=== PATIENT | female | born 1960 | race Caucasian/White ===

== ENCOUNTER 2020-04-12 10:58 | Emergency (ER) | payer OTHER ==
[~2020-04-12] VITALS: Ht 165.1 cm; Wt 51.9 kg
--- OUTSIDE RECORDS SUMMARY | 2020-04-12 11:04 | XMS REPORT | Continuity of Care Document ---
Author Author [facility] Organization [employer] Address Unknown Phone Unavailable Allergies There is no data. Medications There is no data. Problems There is no data. Procedures There is no data. Results Test Result Range CULTURE, URINE - 12/20/18 16:31 CULTURE, URINE, ROUTINE SEE NOTE NRG CULTURE, URINE - 07/18/19 14:42 CULTURE, URINE, ROUTINE SEE NOTE NRG Encounters ACCT No. Visit Date/Time Discharge Status Pt. Type Provider Facility Loc./Unit Complaint [id number] 07/18/2019 14:40:00 07/18/2019 23:59: 59 CLS Outpatient SELF, ANNE Roche [facility] [id number] 07/18/2019 14:40:00 Document Registration [id number] 12/20/2018 13:45:00 Document Registration [id number] 04/12/2020 11:00:[address] Emergency MOLLY IVY, ROXY Babb [facility] ER FS FALL - LT WRIST PAIN
--- NOTE | 2020-04-12 11:17 | ED Upper Extremity ---
General Chief Complaint: Upper Extremity Stated Complaint: FALL - LT WRIST PAIN Source: patient History of Present Illness Date Seen by Provider: Apr 12, 2020 Time Seen by Provider: 11:14 Initial Comments Pt presents with left wrist pain. She fell this morning outside and landed on outstretched hand. Complains of pain in her wrist. No elbow pain. Moves fingers without difficulty. Onset: just prior to arrival Allergies and Home Medications Allergies Coded Allergies: Sulfa (Sulfonamide Antibiotics) (Verified Allergy, Unknown, 04/12/20) Patient Home Medication List Home Medication List Reviewed: Yes Review of Systems Constitutional: no symptoms reported Respiratory: no symptoms reported Cardiovascular: no symptoms reported Gastrointestinal: no symptoms reported Musculoskeletal: other (Wrist pain) Psychiatric/Neurological: Denies Numbness, Denies Paresthesia, Denies Weakness Physical Exam Vital Signs Vital Signs - First Documented 04/12/20 11:00 Temp 35.7 Pulse 69 Resp 14 B/P (MAP) 100/53 (69) Pulse Ox 95 O2 Delivery Room Air Capillary Refill : Height, Weight, BMI Height: '" Weight: lbs. oz. kg; BMI Method: General Appearance: WD/WN, no apparent distress Neck: supple Cardiovascular: normal peripheral pulses Respiratory: no respiratory distress Elbow/Forearm: normal inspection, non-tender Wrist: Yes bone tenderness Hand: normal inspection Neurologic/Tendon: normal sensation Neurologic/Psychiatric: no motor/sensory deficits Skin: normal color Progress/Results/Core Measures Results/Orders My Orders Orders - ROXY BARNES MD Wrist 3 View Left (04/12/20 11:13) Nursing Communication (Order) (04/12/20 11:35) Vital Signs/I&O 04/12/20 11:00 Temp 35.7 Pulse 69 Resp 14 B/P (MAP) 100/53 (69) Pulse Ox 95 O2 Delivery Room Air Progress Progress Note : Time: 11:39 Progress Note Distal radius fracture seen on XR. Will place in splint and refer to Ortho for follow up. Departure Impression Primary Impression: Fracture of left distal radius Disposition: 01 HOME, SELF-CARE Condition: Stable Departure-Patient Inst. Decision time for Depature: 11:45 Referrals: CAROLINE PETERSON MD Patient Instructions: Wrist Fracture (DC) Scripts Hydrocodone/Acetaminophen (Hydrocodone-Acetamin 5-325 mg) 1 Each Tablet 1 EACH PO Q6H PRN for PAIN-MODERATE (5-7), #20 TAB 0 Refills Prov: ROXY BARNES MD 04/12/20 ROXY BARNES MD Apr 12, 2020 11:17
[2020-04-12] MEDS ORDERED: HYDR-3812 PO (11:49)
--- NOTE | 2020-04-12 11:51 | Diagnostic Imaging Report ---
INDICATION: Status post fall in yard, injury, pain. TECHNIQUE: 3 views of the left wrist 11:24 AM CORRELATION STUDY: None FINDINGS: Comminuted, predominantly transversely oriented fracture through the distal metaphysis of the radius. There does appear to be a single fracture line going through the articular surface. There is slight dorsal displacement and angulation of the main distal fracture fragment. Impaction is noted. Minimally displaced ulnar styloid process fracture. Associated soft tissue swelling. IMPRESSION: 1. Impacted comminuted angulated distal radius fracture. Nondisplaced ulnar styloid process fracture. Associated soft tissue swelling. Dictated by: Dictated on workstation # [id number]
[2020-04-12 12:16] VITALS: BP 100/53
== END 2020-04-12 12:15 | disposition home or self-care (01) ==
LOC: ER FS 11:00
DX: S52.502A Unspecified fracture of the lower end of left radius, initial encounter for closed fracture (principal); Z88.2 Allergy status to sulfonamides; W19.XXXA Unspecified fall, initial encounter
CPT/HCPCS: 29105; 73110

== ENCOUNTER → 2020-04-15 | Outpatient (CLI) | payer OTHER ==
[~2020-04-15] MED LIST: HYDR-3812 PO
--- NOTE | 2020-04-17 08:12 | Diagnostic Imaging Report ---
EXAMINATION: Left wrist, 2 views, on 04/15/2020 at 10:31 AM. INDICATION: Followup left wrist fracture. COMPARISON: 04/12/2020. FINDINGS: There has been placement of a fiberglass cast obscuring bone detail. The fracture of the distal radius demonstrates anatomic alignment. There is normal alignment of the ulnar styloid fracture. The carpus and metacarpals are unremarkable. IMPRESSION: Cast placement. There appears to be anatomic alignment of the distal radial and ulnar fractures. Dictated by: Dictated on workstation # [id number]
== END ==
LOC: RAD FS 04-14 15:33
PROVIDERS: ATTEND Nurse Practitioner
DX: Z46.89 Encounter for fitting and adjustment of other specified devices (principal); S52.532D Colles' fracture of left radius, subsequent encounter for closed fracture with routine healing; X58.XXXD Exposure to other specified factors, subsequent encounter
CPT/HCPCS: 73100

== ENCOUNTER → 2020-04-28 | Outpatient (CLI) | payer OTHER ==
--- NOTE | 2020-04-28 12:23 | Diagnostic Imaging Report ---
INDICATION: Left wrist fracture follow-up. AP, oblique, and lateral views of left wrist are obtained. COMPARISON: 04/15/2020 FINDINGS: Distal radial fracture is again noted with mild dorsal angulation of distal fragment. Ulnar styloid avulsion again noted. IMPRESSION: No change in alignment of distal radial fracture with mild dorsal angulation of the distal fragment. Ulnar styloid avulsion is noted. Dictated by: Dictated on workstation # [id number]
== END ==
LOC: RAD FS 11:01
PROVIDERS: ATTEND Nurse Practitioner
DX: S52.532D Colles' fracture of left radius, subsequent encounter for closed fracture with routine healing (principal)
CPT/HCPCS: 73100

== ENCOUNTER → 2020-05-05 | Outpatient (CLI) | payer OTHER ==
[~2020-05-05] MED LIST changes: +ACHD5005 PO; -HYDR-3812 PO
--- NOTE | 2020-05-05 11:36 | Diagnostic Imaging Report ---
INDICATION: Follow-up left wrist fracture. TIME OF EXAM: 11:18 AM Correlation is made with prior radiograph from 04/28/2020. FINDINGS: Wrist is encased in a fiberglass cast, obscuring bony detail. The impacted distal radius fracture is again noted. Overall alignment remains anatomic. Carpus and metacarpals are unremarkable. IMPRESSION: Impacted distal radius fracture demonstrating near-anatomic alignment. Dictated by: Dictated on workstation # [id number]
== END ==
LOC: RAD FS 10:53
PROVIDERS: ATTEND Nurse Practitioner
DX: S52.532D Colles' fracture of left radius, subsequent encounter for closed fracture with routine healing (principal)
CPT/HCPCS: 73100

== ENCOUNTER → 2020-05-12 | Outpatient (CLI) | payer OTHER ==
--- NOTE | 2020-05-12 12:28 | Diagnostic Imaging Report ---
EXAMINATION: Left wrist at 10:58 AM. INDICATION: Followup fracture. TECHNIQUE: AP and lateral views of the left wrist were obtained. FINDINGS: The impacted healing fracture of the distal radius seen on the prior exam of 05/05/2020 is again evident. The fracture fragments are unchanged in alignment. There may be minimally greater callus formation than on the prior exam. The overall appearance of the wrist is otherwise stable. No new abnormality has developed. There is still a fiberglass cast in place. IMPRESSION: There is a healing impacted nondisplaced fracture of the distal radial metaphysis. Overall, there has been no significant change since the prior exam. Dictated by: Dictated on workstation # [id number]
== END ==
LOC: RAD FS 10:24
PROVIDERS: ATTEND Nurse Practitioner
DX: S52.532D Colles' fracture of left radius, subsequent encounter for closed fracture with routine healing (principal)
CPT/HCPCS: 73100

== ENCOUNTER → 2020-05-26 | Outpatient (CLI) | payer OTHER ==
--- NOTE | 2020-05-26 10:59 | Diagnostic Imaging Report ---
EXAMINATION: Left wrist at 10:35 AM. INDICATION: Followup fracture. TECHNIQUE: AP and lateral views were obtained. FINDINGS: In the interval since the prior exam of 05/12/2020, the fiberglass cast has been removed. The impacted healing fracture of the distal radius seen on the prior study is again evident. The main fracture fragments are unchanged in alignment. There does not appear to have been any significant increased amount of healing callus formation since the prior exam and the fracture line is still partially visualized. No other fracture or acute bony abnormality is noted. IMPRESSION: 1. There is a healing impacted fracture of the distal radial metaphysis. The main fracture fragments appear stable but the fracture has not healed completely. 2. There is no acute bony abnormality noted. 3. The fiberglass cast seen previously has been removed. Dictated by: Dictated on workstation # [id number]
== END ==
LOC: RAD FS 10:28
PROVIDERS: ATTEND Nurse Practitioner
DX: S52.532D Colles' fracture of left radius, subsequent encounter for closed fracture with routine healing (principal)
CPT/HCPCS: 73100

== ENCOUNTER → 2020-06-15 | Outpatient (CLI) | payer OTHER ==
--- NOTE | 2020-06-15 10:17 | Diagnostic Imaging Report ---
EXAMINATION: Left wrist at 9:33 AM. INDICATION: Injury, wrist pain. TECHNIQUE: AP and lateral views were obtained. FINDINGS: As noted on the prior exam of 05/26/2020, there is an impacted healing fracture of the distal radial metaphysis. There does seem to be somewhat greater callus formation about the fracture site but the fracture line is still visualized. No other fracture or acute bony abnormality is appreciated. The soft tissues are unremarkable. IMPRESSION: 1. There has been further healing of the fracture of the distal radial metaphysis but the fracture line is still partially visualized. 2. There is no acute bony abnormality noted. Dictated by: Dictated on workstation # [id number]
== END ==
LOC: RAD FS 09:21
PROVIDERS: ATTEND Nurse Practitioner
DX: S52.532D Colles' fracture of left radius, subsequent encounter for closed fracture with routine healing (principal); X58.XXXD Exposure to other specified factors, subsequent encounter
CPT/HCPCS: 73100

== ENCOUNTER 2022-12-02 17:22 | Observation (INO) | payer OTHER ==
[~2022-12-02] VITALS: Ht 165.1 cm; Wt 56.5 kg
--- NOTE | 2022-12-02 17:48 | ED Neurological Problem ---
General Chief Complaint: Neuro-Stroke Like Symptoms Stated Complaint: NUMBNESS ON RIGHT SIDE Source: patient History of Present Illness Date Seen by Provider: Dec 02, 2022 Time Seen by Provider: 17:44 Initial Comments 62-year-old female presenting with complaints of numbness and weakness on her right side that started at 6 AM. She states that she got up at 5 AM and was feeling fine but at 6 AM she started feeling decreased sensation and felt like her leg and arm were going heavy. She felt like it started in her leg and then moved up. She denies any changes in sensation or weakness of her face. She is not having any difficulty with her words or swallowing and speaking. She felt like the symptoms were waxing and waning in intensity. At times it felt like it would almost go away but then got worse again. She denies any recent fall, injury, surgery, new medications. She does smoke cigarettes on a daily basis. She denies any prescription medicines but takes biotin, vitamin D, vitamin E, zinc. She did feel like she had some similar symptoms a few months ago but it only lasted a few minutes and then resolved. Her has been trying to convince her to come to the ER most of the day and she was refusing. He finally got her to come this evening but she was not happy about being here and she feels that if she gave it more time the symptoms would go away. Timing/Duration: waxing and waning (since 6 am.) Severity: mild Associated Symptoms: No confusion, No fatigue, No fever/chills, No insomnia, No loss of consciousness, No muscle spasms, No nausea/vomiting; numbness in legs/feet, paresthesia (right arm and leg); No ringing in ears, No seizures, No sleepy, No slurred speech; tingling in legs/feet; No trouble walking, No vision changes; weakness (heaviness in right arm and right leg) Allergies and Home Medications Allergies Coded Allergies: Sulfa (Sulfonamide Antibiotics) (Verified Allergy, Unknown, 04/12/20) Patient Home Medication List Home Medication List Reviewed: Yes Hydrocodone/Acetaminophen (Hydrocodone-Acetamin 5-325 mg) 1 Each Tablet, 1 EACH PO Q6H PRN for PAIN-MODERATE (5-7) Prescribed by: ROXY BARNES on 04/12/20 [id number] Review of Systems Review of Systems Constitutional: No chills, No fever Eyes: Denies Blurred Vision, Denies Photophobia, Denies Vision Changes Ears, Nose, Mouth, Throat: denies ear pain, denies ear discharge, denies nose pain, denies nose discharge, denies epistaxis Respiratory: No cough, No short of breath Cardiovascular: No chest pain Gastrointestinal: No nausea, No vomiting Genitourinary: No dysuria Musculoskeletal: see HPI; No back pain, No neck pain Skin: No change in color, No rash Psychiatric/Neurological: See HPI Endocrine: No Symptoms Reported Hematologic/Lymphatic: Denies Blood Clots Past Xxcegsl-Orimwf-Idzrmm Hx Patient Social History Tobacco Use?: Yes Tobacco type used: Cigarettes Smoking Status: Current Everyday Smoker Immunizations Up To Date Tetanus Booster (TDap): Unknown Seasonal Allergies Seasonal Allergies: No Past Medical History Surgeries: Yes Hysterectomy Respiratory: No Cardiac: No Neurological: No Genitourinary: No Gastrointestinal: No Musculoskeletal: No Endocrine: No HEENT: No Cancer: No Psychosocial: No Integumentary: No Blood Disorders: No Physical Exam Vital Signs Vital Signs - First Documented 12/02/22 17:25 Temp 37.2 Pulse 79 Resp 16 B/P (MAP) 119/89 (99) Pulse Ox 97 O2 Delivery Room Air Capillary Refill : Height, Weight, BMI Height: '" Weight: lbs. oz. kg; 19.00 BMI Method: General Appearance: WD/WN, no apparent distress HEENT: PERRL/EOMI, normal ENT inspection, pharynx normal Neck: non-tender, full range of motion, supple, normal inspection Respiratory: chest non-tender, lungs clear, normal breath sounds, no respiratory distress, no accessory muscle use Cardiovascular: normal peripheral pulses, regular rate, rhythm Gastrointestinal: normal bowel sounds, non tender, soft, no pulsatile mass Back: no CVA tenderness Extremities: normal range of motion, non-tender, normal capillary refill Neurologic/Psychiatric: alert, oriented x 3; No abnormal gait, No EOM palsy, No facial droop; motor weakness (slight drift to right leg but not her arm.), sensory deficit (decreased sensation to right leg and right arm compared to the left. ) Crainal Nerves: normal hearing, normal speech, PERRL Coordination/Gait: normal gait, other (normal heel to tomas) Motor/Sensory: no pronator drift, sensory deficit (right arm and right leg), weak motor strength RLE Skin: normal color, warm/dry Stroke Onset of Symptoms Date of Onset of Symptoms: Dec 02, 2022 Time of Symptom Onset: 06:00 Onset of Symptoms: Yes NIH Stroke Scale Assessment Select: Initial Level of Consciousness: 0=Alert (0), Level of Consciousness- Questions: 0=Answers both month/age (0), LOC Commands: 0=Performs both tasks (0), Gaze: Normal (0), Visual Chavez: 0=No visual loss (0), Facial Movement (Facial Paresis): 0=Normal symmetrical mnt (0), Motor Function-Arms Right: 0=No drift (0), Motor Function-Arms Left: 0=No drift (0), Motor Function-Legs Right: 1=Drift (1), Motor Function-Legs Left: 0=No drift (0), Limb Ataxia: 0=Absent (0), Sensory: 1=Mild to Moderate loss (1), Best Language: 0=No aphasia (0), Dysarthria: 0=Normal (0), Extinction & Inattention: 0=No abnormality (0), Total: 2 Stroke Thrombolytic Exclusion Age 18 or Over: Yes Acute intenal hemorrhage: No History of CVA: No Uncontrolled Coagulation Defec: No Intracranial Hemorrhage: No Severe Hypertension: No GI or Bleed: No Subarachnoid Hemorrhage: No Intracranial Neoplasm/Aneurysm: No Oral Anticoagulants: No Surgery or Trauma: No Puncture of Non-Compressible V: No Recent CPR: No Diabetic Hemorrhagic Retinopat: No Organ Biopsy: No Recent Obstetric Delivery: No Glucose: No Significant Hepatic Dysfunctio: No NIH Stoke Scale >22: No Bacterial Endocarditis: No Pericarditis: No Improving Symptoms: Yes Platelets: No TPA Contraindication: Yes IV - TPa Received IV - TPa Procedure Performed?: No (12 hours of symptoms at presentation to ED) Progress/Results/Core Measures Results/Orders Lab Results Laboratory Tests Test 12/02/22 17:30 12/02/22 19:05 Range/Units White Blood Count 11.3 H 4.3-11.0 10^3/uL Red Blood Count 4.56 3.80-5.11 10^6/uL Hemoglobin 14.2 11.5-16.0 g/dL Hematocrit 42 35-52 % Mean Corpuscular Volume 91 80-99 fL Mean Corpuscular Hemoglobin 31 25-34 pg Mean Corpuscular Hemoglobin Concent 34 32-36 g/dL Red Cell Distribution Width 13.1 10.0-14.5 % Platelet Count 274 130-400 10^3/uL Mean Platelet Volume 11.7 9.0-12.2 fL Neutrophils (%) (Auto) 50 42-75 % Lymphocytes (%) (Auto) 38 12-44 % Monocytes (%) (Auto) 9 0-12 % Eosinophils (%) (Auto) 3 0-10 % Basophils (%) (Auto) 1 0-10 % Neutrophils # (Auto) 5.6 1.8-7.8 X 10^3 Lymphocytes # (Auto) 4.2 H 1.0-4.0 X 10^3 Monocytes # (Auto) 1.0 0.0-1.0 X 10^3 Eosinophils # (Auto) 0.3 0.0-0.3 10^3/uL Basophils # (Auto) 0.1 0.0-0.1 10^3/uL Prothrombin Time 13.5 12.2-14.7 SEC INR Comment 1.0 0.8-1.4 Activated Partial Thromboplast Time 31 24-35 SEC Sodium Level 138 135-145 MMOL/L Potassium Level 3.9 3.6-5.0 MMOL/L Chloride Level 102 98-107 MMOL/L Carbon Dioxide Level 25 21-32 MMOL/L Anion Gap 11 5-14 MMOL/L Blood Urea Nitrogen 9 7-18 MG/DL Creatinine 0.67 0.60-1.30 MG/DL Estimat Glomerular Filtration Rate 98 BUN/Creatinine Ratio 13 Glucose Level 117 H 70-105 MG/DL Calcium Level 9.8 8.5-10.1 MG/DL Corrected Calcium 9.5 8.5-10.1 MG/DL Total Bilirubin 0.5 0.1-1.0 MG/DL Aspartate Amino Transf (AST/SGOT) 16 5-34 U/L Alanine Aminotransferase (ALT/SGPT) 9 0-55 U/L Alkaline Phosphatase 83 40-136 U/L Troponin I < 0.30 <0.30 NG/ML Total Protein 7.4 6.4-8.2 GM/DL Albumin 4.4 3.2-4.5 GM/DL Urine Color YELLOW Urine Clarity CLEAR Urine pH 7.5 5-9 Urine Specific [place] 1.010 L 1.016-1.022 Urine Protein NEGATIVE NEGATIVE Urine Glucose (UA) NEGATIVE NEGATIVE Urine Ketones NEGATIVE NEGATIVE Urine Nitrite NEGATIVE NEGATIVE Urine Bilirubin NEGATIVE NEGATIVE Urine Urobilinogen 0.2 < = 1.0 MG/DL Urine Leukocyte Esterase NEGATIVE NEGATIVE Urine RBC (Auto) NEGATIVE NEGATIVE Urine RBC NONE /HPF Urine WBC RARE /HPF Urine Squamous Epithelial Cells 2-5 /HPF Urine Crystals NONE /LPF Urine Bacteria TRACE /HPF Urine Casts NONE /LPF Urine Mucus NEGATIVE /LPF Urine Culture Indicated NO My Orders Orders - LYDIA FOX MD Ct Head Wo-R/O Stroke (12/02/22 17:32) Cbc With Automated Diff (12/02/22 17:49) Protime With Inr (12/02/22 17:49) Partial Thromboplastin Time (12/02/22 17:49) Comprehensive Metabolic Panel (12/02/22 17:49) Troponin I Fs (12/02/22 17:49) Ua Culture If Indicated (12/02/22 17:49) Ekg Tracing (12/02/22 17:49) Nothing By Mouth (12/02/22 Dinner) Accucheck Stat ONCE (12/02/22 17:49) Ed Iv/Invasive Line Start (12/02/22 17:49) Vital Signs Stroke Patient Q15M (12/02/22 17:49) O2 (12/02/22 17:49) Intake & Output 06,14,22 (12/02/22 17:49) Monitor-Rhythm Ecg Trace Only (12/02/22 17:49) Dysphagia Screening Tool Q10MX1 (12/02/22 17:49) Ct Angio Head/Neck (12/02/22 17:51) Iohexol Injection (Omnipaque 350 Mg/Ml 1 (12/02/22 18:00) Received Contrast (Hold Metformin- Contr (12/02/22 18:00) Sodium Chloride Flush (Catheter Flush Sy (12/02/22 18:00) Ns (Ivpb) (Sodium Chloride 0.9% Ivpb Bag (12/02/22 18:00) Aspirin Tablet (Aspirin Tablet) (12/02/22 19:43) Clopidogrel Tablet (Plavix Tablet) (12/02/22 19:43) Ed Admission (Communication) (12/02/22 19:55) Medications Given in ED Current Medications Medications Dose Ordered Sig/Nikki Route Start Time Stop Time Status Last Admin Dose Admin Iohexol 100 ml ONCE ONCE IV 12/02/22 18:00 12/02/22 18:01 DC 12/02/22 18:11 75 ML Sodium Chloride 100 ml ONCE ONCE IV 12/02/22 18:00 12/02/22 18:01 DC 12/02/22 18:12 100 ML Vital Signs/I&O 12/02/22 12/02/22 12/02/22 17:25 19:15 20:30 Temp 37.2 Pulse 79 62 64 Resp 16 16 20 B/P (MAP) 119/89 (99) 142/64 161/87 Pulse Ox 97 97 98 O2 Delivery Room Air Room Air Admisison Planning May Need Admission (Planning): 17:50 Progress Progress Note #1: Time: 17:44 Progress Note Potential diagnosis of life threatening acute ischemic stroke, acute hemorrhagic stroke, intracranial tumor or mass, carotid artery stenosis, dissection or blockage of artery providing blood flow to the brain. Patient was sent to CT scan for stat CT head due to her right-sided weakness and decreased sensation. After she returned from radiology I evaluated her and she did have NIH stroke scale of 2 with one off for drift of the right leg and one off for decree sensation to the right side of the body. Establish peripheral IV access and send labs for complete blood count, comprehensive metabolic profile, coagulation factors, urinalysis, electrocardiogram to evaluate for acute arrhythmia or ischemia, placed on cardiac leadership program intern to watch her heart rate and rhythm. Initially her cardiac leadership program intern shows normal sinus rhythm with a heart rate of 60s. There is no acute ischemic changes on her electrocardiogram and it was a sinus rhythm. On my personal review and interpretation of the CT scan of the head without contrast I did not appreciate an acute hemorrhage or mass. I placed an order for CT angiogram of the head and neck since it has not seen any acute hemorrhage. Will review the radiologist report when it is available. Advised the patient that I will talk to neurology at for consults about further care and treatment once we have the imaging and test back. Progress Note #2: Time: 18:42 Progress Note Complete blood count did not show acute significant abnormality to account for her symptoms. She was not have an elevated white blood cell count for infection, low hemoglobin for anemia, low platelets. Her comprehensive metabolic profile did not show acute electrolyte imbalance or signs of renal or hepatic failure. I reviewed the radiologist report on the CT scan of the head without contrast. They saw lacunar infarcts and chronic microvascular changes on the CT scan. Awaiting CT angiogram. Progress Note #3: Time: 19:11 Progress Note I reviewed the CT angiogram of the head neck from radiology and they did not see any acute blockage or large vessel occlusion. I placed a call to [facility] to the stroke neurologist and discussed the case with Dr. Guo, the concrete paving supervisor stroke neurologist severino at [facility]. I reviewed the patient presentation with symptom onset after waking up at 5 am and noticed symptoms at 6 am. Presented here to ED after 1700. Labs all stable and not showing aucte abnormality to account for her symptoms. CT head without acute hemorrhage or signs of acute ischemic stroke but did show areas of lacunar infarct and microvascular changes. No large vessel occlusion on CT angiography of head and neck. He recommended at least overnight admit and observation to get risk stratification testing and initiate dual platelet therapy with aspirin 325 mg po q day and Plavix 75 mg po q day for 21 days and then could decrease to just aspirin. MRI, Echocardiogram, Lipid panel, Hemoglobin A1C would all be in the [facility] stratification testing list. I reviewed this recommendation with patient and spouse. She was reluctant to be admitted. She also was in disbelief that the CT scan was showing signs of old stroke. I advised her that she did not have to have one whole side of her body stop working completely for it to be a stroke. That certainly is a more catastrophic type of stroke and it does happen. However, she can have mild symptoms that then progress and worsen and could become permanent instead of the waxing and waning she is having now or when her symptoms resolved after 5 to 10 minutes a few months ago. She was finally agreeable to admit but said she would only want to stay one night. Her was supportive of her needing to be in the hospital for testing and evaluation and told her that he felt she should stay as long as necessary. Progress Note #4: Time: 19:51 Progress Note d/w Dr. Jo, concrete paving supervisor hospitalist for [facility]. I reviewed her presentation and the labs not showing anything acute but her CT scan showing lacunar infarcts and microvascular changes. D/w Dr. Guo, concrete paving supervisor stroke neurologist at [facility]. He had recommended admit for risk stratification and testing such as MRI, Echocardiogram, Lipid panel, hemoglobin A1C. She was agreeable to admit at [facility]. I also advised her that the patient and were refusing EMS transport due to cost and will be having her drive her to [facility]. Will place patient as observation status on 4th floor med/surg room with telemetry and she will place queued orders for the admit. Patient was given initial dose of Aspirin 325 mg and Plavix 75 mg by mouth here in the ED. Initial ECG Impression Date: Dec 02, 2022 Initial ECG Impression Time: 17:32 Initial ECG Rate: 85 Initial ECG Rhythm: Normal Sinus Initial ECG Comparisson: No Previous ECG Available Comment On my personal interpretation and review her electrocardiogram shows sinus rhythm with a heart rate of 85 bpm. [place] interval [address] elevation. QT interval 349 ms with a QTc interval of 391 ms. She has no prior tracing available for comparison. Diagnostic Imaging Diagonstic Imaging: CT Plain Films/CT/US/NM/MRI: head Comments [facility], [place] NAME: PABLO MARTÍNEZ [facility] REC#: [id number] PT STATUS: REG ER : 1960 PHYSICIAN: LYDIA FOX MD ADMIT DATE: 12/02/22/ER FS Signed Date of Exam:12/02/22 CT HEAD WO-R/O STROKE PROCEDURE: CT head w/o r/o stroke. TECHNIQUE: Multiple contiguous axial images were obtained through the brain without the use of intravenous contrast. Auto Exposure Controls were utilized during the CT exam to meet ALARA standards for radiation dose reduction. INDICATION: Right paresthesia. FINDINGS: Ventricles and sulci are prominent and there is extensive low-density in the deep white matter and periventricular white matter of both cerebral hemispheres. Focal low densities are present within the right raj and basal ganglia, bilaterally. There is no evidence of hemorrhage. No geographic low density is seen to indicate a territorial infarct. IMPRESSION: Findings are suggestive of chronic microvascular ischemia and old lacunar infarcts without intracranial hemorrhage or other acute intracranial abnormality. MRI has greater sensitivity for MRI in the acute setting. Dictated by: Dictated on workstation # [id number] Dict: 12/02/221745 Trans: 12/02/221819 [facility] [id number] Interpreted by: MARTIN ESPARZA MD Electronically signed by: MARTIN ESPARZA MD 12/02/221819 Reviewed: Reviewed by Me (I reviewed radiologist report at 1842) Diagonstic Imaging: CT Plain Films/CT/US/NM/MRI: head (and neck) Comments NAME: PABLO MARTÍNEZ [facility] REC#: [id number] PT STATUS: REG ER : 1960 PHYSICIAN: LYDIA FOX MD ADMIT DATE: 12/02/22/ER FS Signed Date of Exam:12/02/22 CT ANGIO HEAD/NECK PROCEDURE: CT angiography of the head and CT angiography of the neck with and without contrast. TECHNIQUE: Contiguous noncontrast images were obtained from the skull base through the vertex. After intravenous contrast administration, helical CT angiography of the neck was performed. Source data was reformatted into 3D MIP projections. Delayed post contrast acquisition was also obtained. Auto Exposure Controls were utilized during the CT exam to meet ALARA standards for radiation dose reduction. INDICATION: Right-sided numbness: COMPARISON: CT of the head without contrast from the same day. FINDINGS: Vascular: The right common, right internal, right external carotid artery are patent and normal in caliber. The left common, left internal, left external carotid artery are patent and normal in caliber. The bilateral cervical vertebral arteries are patent and normal in caliber. The left vertebral artery is dominant. Basilar artery and bilateral automobile radio repairer are patent and normal in caliber. There is a left -type SERVICE LINE LAYER. Atelectatic of bilateral intracranial ICAs. No aneurysm. Patent bilateral MCA and JEFF. No large vessel occlusion. Patent dural sinuses. No abnormal enhancement. No acute intracranial hemorrhage. Moderate chronic small vessel ischemic disease. Mild global volume loss. The ventricles and cortical sulci are normal. No intracranial mass or fluid collection. The neck soft tissues demonstrates no neck mass or lymphadenopathy. Included lung apices demonstrates emphysema and biapical scarring. The osseous structures demonstrate mild multilevel degenerative changes. IMPRESSION: No large vessel occlusion or significant stenosis of the head and neck. Dictated by: Dictated on workstation # [id number] Dict: 12/02/221825 Trans: 12/02/221830 [facility] [id number] Interpreted by: MARY LOPEZ DO Electronically signed by: MARY LOPEZ DO 12/02/221830 Reviewed: Reviewed by Me (I reviewed radiologist report at 1911) Departure Communication (Admissions) Time/Spoke to Admitting Phy: 19:51 d/w Dr. Jo, concrete paving supervisor hospitalist for [facility]. I reviewed her presentation and the labs not showing anything acute but her CT scan showing lacunar infarcts and microvascular changes. D/w Dr. Guo, concrete paving supervisor stroke neurologist at [facility]. He had recommended admit for risk stratification and testing such as MRI, Echocardiogram, Lipid panel, hemoglobin A1C. She was agreeable to admit at [facility]. I also advised her that the patient and were refusing EMS transport due to cost and will be having her drive her to [facility]. Will place patient as observation status on 4th floor med/surg room with telemetry and she will place queued orders for the admit. Patient was given initial dose of Aspirin 325 mg and Plavix 75 mg by mouth here in the ED. Impression Primary Impression: Acute stroke due to ischemia Additional Impressions: Right sided weakness Paresthesia of right arm and leg Tobacco abuse Disposition: 30 STILL A PATIENT Condition: Stable Admissions Decision to Admit Reason: Admit from ER (General) Decision to Admit/Date: Dec 02, 2022 Time/Decision to Admit Time: 19:51 Departure-Patient Inst. Referrals: ANNE GAMBLE MD (PCP/Family) Primary Care Physician LYDIA FOX MD Dec 02, 2022 17:48
[2022-12-02 17:55] LABS: PROTHROMBIN TIME PATIENT 13.5 SEC (12.2-14.7)
[2022-12-02 17:56] LABS: ALANINE AMINOTRANSFERASE 9 U/L (0-55); ALBUMIN 4.4 GM/DL (3.2-4.5); ALKALINE PHOSPHATASE 83 U/L (40-136); BILIRUBIN,TOTAL 0.5 MG/DL (0.1-1.0); BUN/CREATININE RATIO 13; CALCIUM 9.8 MG/DL (8.5-10.1); CARBON DIOXIDE 25 MMOL/L (21-32); CHLORIDE 102 MMOL/L (98-107); CREATININE SERUM 0.67 MG/DL (0.60-1.30); GFR ESTIMATED 98; GLUCOSE 117 MG/DL (70-105); POTASSIUM 3.9 MMOL/L (3.6-5.0); SODIUM 138 MMOL/L (135-145); TOTAL PROTEIN 7.4 GM/DL (6.4-8.2)
[2022-12-02 17:57] LABS: BASOPHILS # (AUTO) 0.1 10^3/uL (0.0-0.1); BASOPHILS % (AUTO) 1 % (0-10); EOSINOPHILS # (AUTO) 0.3 10^3/uL (0.0-0.3); EOSINOPHILS % (AUTO) 3 % (0-10); HEMATOCRIT 42 % (35-52); HEMOGLOBIN 14.2 g/dL (11.5-16.0); LYMPHOCYTES # (AUTO) 4.2 X 10^3 (1.0-4.0); LYMPHOCYTES % (AUTO) 38 % (12-44); MEAN CORPUSCULAR HEMOGLOBIN 31 pg (25-34); MEAN CORPUSCULAR HGB CONC 34 g/dL (32-36); MEAN CORPUSCULAR VOLUME 91 fL (80-99); MEAN PLATELET VOLUME 11.7 fL (9.0-12.2); MONOCYTES % (AUTO) 9 % (0-12); NEUTROPHILS # (AUTO) 5.6 X 10^3 (1.8-7.8); NEUTROPHILS % (AUTO) 50 % (42-75); PLATELET COUNT 274 10^3/uL (130-400); WHITE BLOOD COUNT 11.3 10^3/uL (4.3-11.0)
[2022-12-02] MEDS ORDERED: IOHEXOL 350 MG/ML 100 ML (OMNIPAQUE 350) VIAL IV ONE (18:00)
[2022-12-02] MEDS ORDERED: CATHETER FLUSH 10 ML SYR IV PRN (18:00)
[2022-12-02] MEDS ORDERED: HOLD METFORMIN - RECEIVED CONTRAST 20 ML VIAL IV SCH (18:00)
[2022-12-02] MEDS ORDERED: NS 100 ML (IVPB) BAG IV ONE (18:00)
--- NOTE | 2022-12-02 18:33 | Diagnostic Imaging Report ---
PROCEDURE: CT angiography of the head and CT angiography of the neck with and without contrast. TECHNIQUE: Contiguous noncontrast images were obtained from the skull base through the vertex. After intravenous contrast administration, helical CT angiography of the neck was performed. Source data was reformatted into 3D MIP projections. Delayed post contrast acquisition was also obtained. Auto Exposure Controls were utilized during the CT exam to meet ALARA standards for radiation dose reduction. INDICATION: Right-sided numbness: COMPARISON: CT of the head without contrast from the same day. FINDINGS: Vascular: The right common, right internal, right external carotid artery are patent and normal in caliber. The left common, left internal, left external carotid artery are patent and normal in caliber. The bilateral cervical vertebral arteries are patent and normal in caliber. The left vertebral artery is dominant. Basilar artery and bilateral product managent intern are patent and normal in caliber. There is a left -type GROUP WORKER. Atelectatic of bilateral intracranial ICAs. No aneurysm. Patent bilateral MCA and JEFF. No large vessel occlusion. Patent dural sinuses. No abnormal enhancement. No acute intracranial hemorrhage. Moderate chronic small vessel ischemic disease. Mild global volume loss. The ventricles and cortical sulci are normal. No intracranial mass or fluid collection. The neck soft tissues demonstrates no neck mass or lymphadenopathy. Included lung apices demonstrates emphysema and biapical scarring. The osseous structures demonstrate mild multilevel degenerative changes. IMPRESSION: No large vessel occlusion or significant stenosis of the head and neck. Dictated by: Dictated on workstation # [id number]
[2022-12-02 19:11] LABS: BILIRUBIN,URINE NEGATIVE (NEGATIVE); CLARITY,URINE CLEAR; COLOR,URINE YELLOW; GLUCOSE, URINE (UA) NEGATIVE (NEGATIVE); KETONES,URINE NEGATIVE (NEGATIVE); LEUKOCYTE ESTERASE ,URINE NEGATIVE (NEGATIVE); NITRITE,URINE NEGATIVE (NEGATIVE); PH,URINE 7.5 (5-9); PROTEIN,URINE NEGATIVE (NEGATIVE)
[2022-12-02 19:14] LABS: BACTERIA,URINE TRACE /HPF; WBC,URINE RARE /HPF
[2022-12-02 19:15] VITALS: BP 142/64
[2022-12-02] MEDS ORDERED: ASPIRIN 325 MG (5 GR) TABLET PO STA (19:43)
[2022-12-02] MEDS ORDERED: CLOPIDOGREL 75 MG (PLAVIX) TABLET PO STA (19:43)
[2022-12-02 21:45] VITALS: BP 164/80
[2022-12-02] MEDS ORDERED: diphenhydrAMINE 25 MG TAB (BENADRYL) PO PRN (22:15)
[2022-12-02] MEDS ORDERED: ACETAMINOPHEN 325 MG TABLET PO PRN (22:15)
[2022-12-02] MEDS ORDERED: MELATONIN 3 MG TABLET PO PRN (22:15)
[2022-12-02] MEDS ORDERED: HYDROmorphone 2 MG/ML VIAL (DILAUDID) IV PRN (22:15)
[2022-12-02] MEDS ORDERED: polyethylene glycoL POWDER 17 GM (MIRALAX) PACK PO PRN (22:15)
[2022-12-02] MEDS ORDERED: diphenhydrAMINE 50 MG/ML INJ (BENADRYL) IVP PRN (22:15)
[2022-12-02] MEDS ORDERED: ONDANSETRON 4 MG/2 ML (SDV) Z0FRAN IV PRN (22:15)
[2022-12-02] MEDS ORDERED: ANTACID SUSP 30 ML UDC (MYLANTA) PO PRN (22:15)
[2022-12-02] MEDS ORDERED: ONDANSETRON 4 MG (ZOFRAN) ORAL DISSOLVE TAB PO PRN (22:15)
[2022-12-02] MEDS ORDERED: BISACODYL 10 MG SUPP (DULCOLAX) PR PRN (22:15)
[2022-12-02] MEDS ORDERED: ENOXAPARIN 40 MG/0.4 ML (LOVENOX) SYR SC SCH (22:15)
[2022-12-02] MEDS ORDERED: ALPRAZolam 0.25 MG (XANAX) TAB PO PRN (22:15)
[2022-12-02 22:44] LABS: TRIGLYCERIDES 60 MG/DL (<150); VLDL CHOLESTEROL 12 MG/DL (5-40)
[2022-12-02 22:49] LABS: CHOLESTEROL 162 MG/DL (< 200)
[2022-12-02 22:50] LABS: HDL CHOLESTEROL 47 MG/DL (40-60)
[2022-12-02 23:41] VITALS: BP 149/72
[2022-12-03 03:44] VITALS: BP 135/71
[2022-12-03 05:32] LABS: BASOPHILS # (AUTO) 0.1 10^3/uL (0.0-0.1); BASOPHILS % (AUTO) 1 % (0-10); EOSINOPHILS # (AUTO) 0.4 10^3/uL (0.0-0.3); EOSINOPHILS % (AUTO) 4 % (0-10); HEMATOCRIT 38 % (35-52); HEMOGLOBIN 12.7 g/dL (11.5-16.0); LYMPHOCYTES # (AUTO) 4.1 10^3/uL (1.0-4.0); LYMPHOCYTES % (AUTO) 44 % (12-44); MEAN CORPUSCULAR HEMOGLOBIN 31 pg (25-34); MEAN CORPUSCULAR HGB CONC 33 g/dL (32-36); MEAN CORPUSCULAR VOLUME 92 fL (80-99); MEAN PLATELET VOLUME 11.6 fL (9.0-12.2); MONOCYTES # (AUTO) 0.7 10^3/uL (0.0-1.0); MONOCYTES % (AUTO) 7 % (0-12); NEUTROPHILS # (AUTO) 4.1 10^3/uL (1.8-7.8); NEUTROPHILS % (AUTO) 44 % (42-75); PLATELET COUNT 224 10^3/uL (130-400); WHITE BLOOD COUNT 9.3 10^3/uL (4.3-11.0)
[2022-12-03 05:48] LABS: ALBUMIN 3.7 GM/DL (3.2-4.5)
[2022-12-03 05:49] LABS: POTASSIUM 3.4 MMOL/L (3.6-5.0)
[2022-12-03 05:50] LABS: CALCIUM 8.7 MG/DL (8.5-10.1)
[2022-12-03 05:51] LABS: TOTAL PROTEIN 6.1 GM/DL (6.4-8.2)
[2022-12-03 05:53] LABS: BILIRUBIN,TOTAL 0.5 MG/DL (0.1-1.0)
[2022-12-03 05:55] LABS: CREATININE SERUM 0.75 MG/DL (0.60-1.30)
--- NOTE | 2022-12-03 07:20 | History & Physical-Hospitalist ---
History of Present Illness Date Seen 12/03/22 Time Seen by a Provider: 11:00 Attending Physician Dony Osborne MD PCP Admitting Physician: Lizeth Jo DO Attending Physician: Lizeth Jo DO Referring Physician Date of Admission Dec 02, 2022 at 21:30 Home Medications & Allergies Home Medications Reviewed patient Home Medication Reconciliation performed by pharmacy medication reconciliations traffic survey technician and/or nursing. Patients Allergies have been reviewed. Allergies Allergies Coded Allergies Sulfa (Sulfonamide Antibiotics) (Verified Allergy, Unknown, 04/12/20) Past Ibhcwgz-Pkamcl-Dalnnt Hx Patient Social History Tobacco Use?: Yes Tobacco type used: Cigarettes Smoking Status: Current Everyday Smoker Substance use?: No Alcohol Use?: Yes Alcohol Frequency: Once in a while Pt feels they are or have been: No Immunizations Up To Date Tetanus Booster (TDap): Unknown Seasonal Allergies Seasonal Allergies: No Current Status status: No status: No Advance Directives: No Communicates: Verbally Primary Language: Jordanian Preferred Spoken Language: Jordanian Implanted or Applied Medical D: None Past Medical History Surgeries: Hysterectomy Blood Disorders: No Physical Exam Physical Exam Vital Signs Vital Signs - First Documented 12/02/22 12/02/22 12/03/22 17:25 22:25 08:51 Temp 37.2 Pulse 79 Resp 16 B/P (MAP) 119/89 (99) Pulse Ox 97 O2 Delivery Room Air O2 Flow Rate 0.00 FiO2 21 Capillary Refill : Less Than 3 Seconds Height, Weight, BMI Height: '" Weight: lbs. oz. kg; 20.72 BMI Method: Results Results/Procedures Labs Laboratory Tests 12/02/22 17:30 12/03/22 05:09 Patient resulted labs reviewed. Clinical Quality Measures Stroke: Date of last known well: Dec 02, 2022 Time of last known well: 06:00 LIZETH JO DO Dec 03, 2022 07:20
--- NOTE | 2022-12-03 08:00 | Physical Therapy Evaluation ---
PT Evaluation-General Medical Diagnosis Admission Date Dec 02, 2022 at 21:30 Medical Diagnosis: Ischemic CVA Onset Date: Dec 02, 2022 Therapy Diagnosis Therapy Diagnosis: impaired mobility Precautions Precautions/Isolations: Fall Prevention, Standard Precautions Weight Bear Status Full Weight Bearing Full Weight Bearing Referral Reason for Referral: Evaluation/Treatment Medical History Pertinent Medical History: Smoking Additional Medical History old stroke Social History Current Living Status: Spouse Prior Prior Level of Function SCALE: Activities may be completed with or without assistive devices. 9-Mzljfokeef-izdxenh completes the activity by him/herself with no assistance from a helper. 5-Set-up or Clean-up Assistance-helper sets up or cleans up; patient completes activity. [place] assists only prior to or following the activity. 4-Supervision or Touching Assistance-helper provides verbal cues and/or touching/steadying and/or contact guard assistance as patient completes activity. Assistance may be provided throughout the activity or intermittently. 3-Partial/Moderate Assistance-helper does LESS THAN HALF the effort. [place] lifts, holds or supports trunk or limbs, but provides less than half the effort. 2-Substantial/Maximal Assistance-helper does MORE THAN HALF the effort. [place] lifts or holds trunk or limbs and provides more than half the effort. 6-Snguyclzv-tuukzo does ALL the effort. Patient does none of the effort to complete the activity. Or, the assistance of 2 or more helpers is required for the patient to complete the activity. If activity was not attempted, code reason: 7-Patient Refused. 9-Not Applicable-not attempted and the patient did not perform the activity before the current illness, exacerbation or injury. 10-Not Attempted due to Environmental Limitations-(lack of equipment, weather restraints, etc.). 88-Not Attempted due to Medical Conditions or Safety Concerns. Bed Mobility: 6 Transfers (B,C,W/C): 6 Gait: 6 Stairs: 6 Indoor Mobility (Ambulation): Independent Stairs: Independent PT Evaluation-Current Subjective Pt reports starting early Monday am she began having heaviness and tingling in the right arm and leg. She reluctantly came to the hospital late last night. CT scan showed small ischemic CVA with resultant right side weakness. Pt reports she is feeling better this morning with the only remaining symptoms being altered sensation and tingling in the right arm and leg. Objective Patient Orientation: Normal For Age ROM/Strength ROM Upper Extremities WNL ROM Lower Extremities WNL Strength Upper Extremities WNL Strength Lower Extremities WNL Neuromuscular (Tone, Coordination, Reflexes) Pt demonstrated ability to perform reciprocal movements with no observable difference right to left in both the UE and LEs. Sensory Vision: Functional Hearing: Functional Sensation Right Upper Extremit: Impaired Sensation Right Lower Extremit: Impaired Sensation Lower Extremities Able to feel touch in the right UE and LE but she notes it as feeling altered. Transfers Roll Left to Right (QC): 6 Sit to Lying (QC): 6 Lying to Sitting/Side of Bed(Q: 6 Sit to Stand (QC): 6 Chair/Aii-jv-Flliw Xfer(QC): 6 Toilet Transfer (QC): 6 Gait Does the Patient Walk?: Yes Mode of Locomotion: Walk Walk 150 ft (QC): 6 Distance: 300 Gait Assistive Device: None Comments/Gait Description Pt had a slight lateral loss of balance upon the first initial step but then recovered and walked 300ft with no assist. Demonstrated no lateral drift or lo ss of balance. She continued to note that her only symptoms was a tingling in the right lower leg. Balance Sitting Static: Normal Sitting Dynamic: Normal Standing Static: Normal Standing Dynamic: Normal Picking up an Object (QC): 6 Special Test Comments Gale Score of 52/56 indicating no need for assistive device. Her only challenge on the test was tandem stance and single leg stance. Rhomberg and sharpened Rhomberg were intact. Assessment/Needs Pt demonstrated good functional mobility. No significant weakness in the involved upper or lower extremity as compared to the uninvolved. She does have altered sensation in the LE that could be an increased fall risk if patient gets in a hurrry. She will benefit from therapy services for ambulation and balance during her stay in the hospital. Rehab Potential: Good PT Fpc Goals Fpc Goals PT Cabin Worker Goals Time Frame: Dec 05, 2022 Roll Left & Right (QC): 6 Sit to Lying (QC): 6 Lying-Sitting on Side/Bed(QC): 6 Sit to Stand (QC): 6 Chair/Skl-sf-Mkxmx Xfer(QC): 6 Toilet Transfer (QC): 6 Walk 10 feet (QC): 6 Walk 50ft with 2 Turns (QC): 6 Walk 150 ft (QC): 6 1 Step (curb) (QC): 6 12 Steps (QC): 6 Gale score of 56 out of 56 PT Plan Problem List Problem List: Balance Treatment/Plan Treatment Plan: Continue Plan of Care Treatment Duration: Dec 05, 2022 Frequency: 6 times per week Estimated Hrs Per Day: .25 hour per day Patient and/or Family Agrees t: Yes Time Time In: 744 Time Out: 804 DATE: Dec 03, 2022 Total Billed Treatment Time: 20 Total Billed Treatment visit, prosperal moderate complexity 20 min DAVIDE MORALES PT Dec 03, 2022 08:00
[2022-12-03 08:07] VITALS: BP 135/74
[2022-12-03] MEDS ORDERED: DOCUSATE SODIUM 100 MG (COLACE) CAP PO SCH (09:00)
[2022-12-03] MEDS ORDERED: CLOPIDOGREL 75 MG (PLAVIX) TABLET PO SCH (09:00)
[2022-12-03] MEDS ORDERED: ASPIRIN 81 MG CHEW (CHILDREN'S ASA) PO SCH (09:00)
--- NOTE | 2022-12-03 09:41 | Consultation-Cardiology ---
HPI-Cardiology Cardiology Consultation Date of Consultation 12/03/22 Date of Admission Time Seen by Provider: 09:36 Indication: TIA HPI 62-year-old lady with no significant past medical history, does not take any medication. Reported that she started to have numbness on her right side waxing and waning with heaviness in her lower extremities. She denied any chest pain or palpitation, condition continue to feel heavy with numbness and came into the emergency room for evaluation. At this time still having some numbness on the right side. No weakness was reported Denied any previous cardiac history, no previous CVA, no TIA, no seizure activity. No palpitation or chest pain Home Medications & Allergies Allergies: Coded Allergies: Sulfa (Sulfonamide Antibiotics) (Verified Allergy, Unknown, 04/12/20) Home Medication List Reviewed: Yes RBZ-Svqukk-Mpvnjd Hx Patient Social History Marital Status: Employed/Student: employed Smoking Status: Current Everyday Smoker Type Used: Cigarettes 2nd Hand Smoke Exposure: No Recent Hopitalizations: No Have you traveled recently?: No Alcohol Use?: Yes Immunizations Up To Date Tetanus Booster (TDap): Unknown Past Medical History Discussed below Family Medical History Significant Family History: No Pertinent Family Hx Review of Systems-General Review of Systems Constitutional: No chills, No fever EENTM: see HPI, no symptoms reported Respiratory: No cough, No short of breath Cardiovascular: No chest pain Gastrointestinal: No nausea, No vomiting Genitourinary: No dysuria Musculoskeletal: see HPI; No back pain, No neck pain Skin: No change in color, No rash Psychiatric/Neurological: No Symptoms Reported, See HPI Reviewed Test Results Reviewed Test Results Lab Laboratory Tests Test 12/02/22 17:30 12/02/22 19:05 12/02/22 22:21 12/03/22 05:09 Range/Units White Blood Count 11.3 H 9.3 4.3-11.0 10^3/uL Red Blood Count 4.56 4.14 3.80-5.11 10^6/uL Hemoglobin 14.2 12.7 11.5-16.0 g/dL Hematocrit 42 38 35-52 % Mean Corpuscular Volume 91 92 80-99 fL Mean Corpuscular Hemoglobin 31 31 25-34 pg Mean Corpuscular Hemoglobin Concent 34 33 32-36 g/dL Red Cell Distribution Width 13.1 12.8 10.0-14.5 % Platelet Count 274 224 130-400 10^3/uL Mean Platelet Volume 11.7 11.6 9.0-12.2 fL Neutrophils (%) (Auto) 50 44 42-75 % Lymphocytes (%) (Auto) 38 44 12-44 % Monocytes (%) (Auto) 9 7 0-12 % Eosinophils (%) (Auto) 3 4 0-10 % Basophils (%) (Auto) 1 1 0-10 % Neutrophils # (Auto) 5.6 4.1 1.8-7.8 10^3/uL Lymphocytes # (Auto) 4.2 H 4.1 H 1.0-4.0 10^3/uL Monocytes # (Auto) 1.0 0.7 0.0-1.0 10^3/uL Eosinophils # (Auto) 0.3 0.4 H 0.0-0.3 10^3/uL Basophils # (Auto) 0.1 0.1 0.0-0.1 10^3/uL Prothrombin Time 13.5 12.2-14.7 SEC INR Comment 1.0 0.8-1.4 Activated Partial Thromboplast Time 31 24-35 SEC Sodium Level 138 141 135-145 MMOL/L Potassium Level 3.9 3.4 L 3.6-5.0 MMOL/L Chloride Level 102 109 H 98-107 MMOL/L Carbon Dioxide Level 25 24 21-32 MMOL/L Anion Gap 11 8 5-14 MMOL/L Blood Urea Nitrogen 9 8 7-18 MG/DL Creatinine 0.67 0.75 0.60-1.30 MG/DL Estimat Glomerular Filtration Rate 98 89 BUN/Creatinine Ratio 13 11 Glucose Level 117 H 83 70-105 MG/DL Calcium Level 9.8 8.7 8.5-10.1 MG/DL Corrected Calcium 9.5 8.9 8.5-10.1 MG/DL Total Bilirubin 0.5 0.5 0.1-1.0 MG/DL Aspartate Amino Transf (AST/SGOT) 16 13 5-34 U/L Alanine Aminotransferase (ALT/SGPT) 9 10 0-55 U/L Alkaline Phosphatase 83 61 40-136 U/L Troponin I < 0.30 <0.30 NG/ML Total Protein 7.4 6.1 L 6.4-8.2 GM/DL Albumin 4.4 3.7 3.2-4.5 GM/DL Urine Color YELLOW Urine Clarity CLEAR Urine pH 7.5 5-9 Urine Specific [place] 1.010 L 1.016-1.022 Urine Protein NEGATIVE NEGATIVE Urine Glucose (UA) NEGATIVE NEGATIVE Urine Ketones NEGATIVE NEGATIVE Urine Nitrite NEGATIVE NEGATIVE Urine Bilirubin NEGATIVE NEGATIVE Urine Urobilinogen 0.2 < = 1.0 MG/DL Urine Leukocyte Esterase NEGATIVE NEGATIVE Urine RBC (Auto) NEGATIVE NEGATIVE Urine RBC NONE /HPF Urine WBC RARE /HPF Urine Squamous Epithelial Cells 2-5 /HPF Urine Crystals NONE /LPF Urine Bacteria TRACE /HPF Urine Casts NONE /LPF Urine Mucus NEGATIVE /LPF Urine Culture Indicated NO Triglycerides Level 60 <150 MG/DL Cholesterol Level 162 < 200 MG/DL LDL Cholesterol Direct 102 1-129 MG/DL VLDL Cholesterol 12 5-40 MG/DL HDL Cholesterol 47 40-60 MG/DL Immature Granulocyte % (Auto) 0 % Immature Granulocyte # (Auto) 0.0 0.0-0.1 10^3/uL Physical Exam Physical Exam Vital Signs Vital Signs - First Documented 12/02/22 12/02/22 12/03/22 17:25 22:25 08:51 Temp 37.2 Pulse 79 Resp 16 B/P (MAP) 119/89 (99) Pulse Ox 97 O2 Delivery Room Air O2 Flow Rate 0.00 FiO2 21 Capillary Refill : Less Than 3 Seconds Height, Weight, BMI Height: '" Weight: lbs. oz. kg; 20.72 BMI Method: General Appearance: No Apparent Distress, WD/WN Eyes: Bilateral Eye Normal Inspection, Bilateral Eye PERRL, Bilateral Eye EOMI HEENT: PERRL/EOMI, TMs Normal, Normal ENT Inspection, Pharynx Normal, Moist Mucous Membranes Neck: Full Range of Motion, Normal Inspection, Non Tender, Supple, Carotid Bruit Respiratory: Chest Non Tender, Normal Breath Sounds, No Accessory Muscle Use, No Respiratory Distress Cardiovascular: Regular Rate, Rhythm, No Edema, No Gallop, No JVD, No Murmur, Normal Peripheral Pulses Gastrointestinal: Normal Bowel Sounds, No Organomegaly, No Pulsatile Mass, Non Tender, Soft Back: Normal Inspection, No CVA Tenderness, No Vertebral Tenderness Extremity: Normal Capillary Refill, Normal Inspection, Normal Range of Motion, Non Tender, No Calf Tenderness, No Pedal Edema Neurologic/Psychiatric: Alert, Oriented x3, No Motor/Sensory Deficits, Normal Mood/Affect Skin: Normal Color, Warm/Dry Lymphatic: No Adenopathy A/P-Cardiology Admission Diagnosis TIA Lacunar infarct Hyperlipidemia Assessment/Plan TIA, unknown etiology Patient is placed on telemetry, monitor rhythm, no arrhythmia detected We will evaluate 2D echo Starting aspirin and Plavix CT of the head suggestive lacunar infarct with microvascular ischemia. No large bleeding or infarction CT angiogram of the head and neck showed no major vessel occlusion Right-sided numbness, mild heaviness. Starting therapy Hyperlipidemia, lipid profile on December 02, 2022 showed total cholesterol 162, LDL 102 Starting atorvastatin 20 mg daily Tobaccoism, patient was educated on smoking cessation, expressed that she is stopping smoking today Clinical Quality Measures Stroke: Date of last known well: Dec 02, 2022 Time of last known well: 06:00 BRENDAN LOPEZ MD Dec 03, 2022 09:41
[2022-12-03 12:02] VITALS: BP 131/72
[2022-12-03] MEDS ORDERED: CLOP75TA28 PO (12:29)
[2022-12-03] MEDS ORDERED: ATOR80TA76 PO (12:29)
[2022-12-03] MEDS ORDERED: ASPI81TA64 PO (12:29)
--- NOTE | 2022-12-03 12:30 | Short Stay Summary-Hospitalist ---
History of Present Illness HPI/Chief Complaint CC: CVA HPI: This is a 62yoWF who presented to the [facility] ER with right sided weakness. She was reluctant to seek out medical attention but her insisted her come for the evaluation. She reports some symptoms similar to this a few months ago but they went away briefly. CT scan revealed evidence of small areas of strokes and she was reluctant to stay in hospital for observation but she is now ready to go home. Danielle was NSR entire course and reviewed all cardiac w/u. Source: patient, family Exam Limitations: no limitations Date Seen 12/03/22 Time Seen by a Provider: 11:00 Attending Physician Dony Osborne MD PCP Admitting Physician: Lizeth Jo DO Attending Physician: Lizeth Jo DO Referring Physician Date of Admission Dec 02, 2022 at 21:30 Home Medications & Allergies Home Medications Reviewed patient Home Medication Reconciliation performed by pharmacy medication reconciliations cost recovery technician and/or nursing. Patients Allergies have been reviewed. Allergies Allergies Coded Allergies Sulfa (Sulfonamide Antibiotics) (Verified Allergy, Unknown, 04/12/20) Past Whraywg-Vteyeg-Beibtn Hx Patient Social History Marrital Status: Employed/Student: employed Tobacco Use?: Yes Tobacco type used: Cigarettes Smoking Status: Current Everyday Smoker Substance use?: No Alcohol Use?: Yes Alcohol Frequency: Once in a while Pt feels they are or have been: No Immunizations Up To Date Tetanus Booster (TDap): Unknown Seasonal Allergies Seasonal Allergies: No Current Status status: No status: No Advance Directives: No Communicates: Verbally Primary Language: [place] Preferred Spoken Language: [place] Implanted or Applied Medical D: None Past Medical History Surgeries: Hysterectomy Blood Disorders: No Family Medical History No Pertinent Family Hx Review of Systems Constitutional: see HPI Psychiatric/Neurological: Tingling, Weakness Physical Exam Physical Exam Vital Signs Vital Signs - First Documented 12/02/22 12/02/22 12/03/22 17:25 22:25 08:51 Temp 37.2 Pulse 79 Resp 16 B/P (MAP) 119/89 (99) Pulse Ox 97 O2 Delivery Room Air O2 Flow Rate 0.00 FiO2 21 Capillary Refill : Less Than 3 Seconds Height, Weight, BMI Height: '" Weight: lbs. oz. kg; 20.72 BMI Method: General Appearance: No Apparent Distress, WD/WN Eyes: Bilateral Eye Normal Inspection, Bilateral Eye PERRL, Bilateral Eye EOMI HEENT: PERRL/EOMI, TMs Normal, Normal ENT Inspection, Pharynx Normal, Moist Mucous Membranes Neck: Full Range of Motion, Normal Inspection, Non Tender, Supple, Carotid Bruit Respiratory: Chest Non Tender, Normal Breath Sounds, No Accessory Muscle Use, No Respiratory Distress Cardiovascular: Regular Rate, Rhythm, No Edema, No Gallop, No JVD, No Murmur, Normal Peripheral Pulses Gastrointestinal: Normal Bowel Sounds, No Organomegaly, No Pulsatile Mass, Non Tender, Soft Back: Normal Inspection, No CVA Tenderness, No Vertebral Tenderness Extremity: Normal Capillary Refill, Normal Inspection, Normal Range of Motion, Non Tender, No Calf Tenderness, No Pedal Edema Neurologic/Psychiatric: Alert, Oriented x3, No Motor/Sensory Deficits, Normal Mood/Affect Skin: Normal Color, Warm/Dry Lymphatic: No Adenopathy Results Results/Procedures Labs Laboratory Tests 12/02/22 17:30 12/03/22 05:09 Patient resulted labs reviewed. Short Stay Diagnosis Discharge Diagnosis-Short Stay Admission Diagnosis CVA Final Discharge Diagnosis Subacute CVA with right sided weakness now improved Smoker Conclusion Plan DC home Clinical Quality Measures Stroke: Date of last known well: Dec 02, 2022 Time of last known well: 06:00 LIZETH JO DO Dec 03, 2022 12:30
[2022-12-03 12:58] VITALS: BP 131/72
== END 2022-12-03 12:27 | disposition home or self-care (01) ==
LOC: EDUNIT# 17:22 → ER FS 17:25 → UNDOADMOB 21:30 → 4TH 21:30 → UNDODISOB 12-03 12:27
PROVIDERS: ADMIT Internal Medicine; ATTEND Internal Medicine
DX: I63.9 Cerebral infarction, unspecified (principal); R29.702 NIHSS score 2; R53.1 Weakness; E78.5 Hyperlipidemia, unspecified; G45.9 Transient cerebral ischemic attack, unspecified; F17.210 Nicotine dependence, cigarettes, uncomplicated
CPT/HCPCS: 36415; 70450; 70496; 70498; 80053 ×2; 80061; 81000; 84484; 85025 ×2; 85610; 85730; 93005; 93041; 94664; 94760; 96372; 97162; 99284; C8929; G0378; 93306; Q9967

== ENCOUNTER → 2022-12-07 | Outpatient (CLI) | payer OTHER ==
[~2022-12-07] MED LIST changes: +ASPI81TA64 PO; +ATOR80TA76 PO; +CLOP75TA28 PO
--- NOTE | 2022-12-07 12:19 | Diagnostic Imaging Report ---
INDICATION: Right-sided weakness. Paresthesias. Neck pain. COMPARISON: None FINDINGS: Frontal, lateral, and open-mouth radiographic views of the cervical spine were obtained. Cervical spine is well visualized down to C7-T1 level on the lateral view. Evaluation of static alignment shows straightening with slight reversal of normal lordotic curvature epicentered at the C5-C6 level. There is no evidence of jumped facets. There is no significant anteroretrolisthesis. Open-mouth view shows normal C1-C2 alignment. Vertebral body heights are maintained. There is no acute fracture. Moderate degenerative changes are noted, greatest at C5-C6 where there is intervertebral disc height loss with prominent anterior and posterior endplate osteophyte formations. IMPRESSION: 1. No acute fracture or dislocation of the cervical spine. 2. Degenerative changes greatest at C5-C6. Dictated by: Dictated on workstation # [id number]
== END ==
LOC: RAD FS 11:41
PROVIDERS: ATTEND Family Medicine
DX: M47.22 Other spondylosis with radiculopathy, cervical region (principal); R53.1 Weakness; R20.2 Paresthesia of skin
CPT/HCPCS: 72040

== ENCOUNTER → 2022-12-27 | Outpatient (CLI) | payer MEDICARE, OTHER ==
--- NOTE | 2022-12-28 12:12 | Diagnostic Imaging Report ---
CLINICAL INDICATION: Patient with bilateral arm and leg tingling. EXAM: MRI of the cervical spine performed without IV contrast. Sequences include sagittal T2, sagittal T1, sagittal T2 fat-sat, and axial T2. COMPARISONS: X-ray of the cervical spine dated 12/07/2022. FINDINGS: There is no acute cervical spine fracture. A small amount of Modic type I degenerative signal changes involving C5-C6 endplates. There are small areas of increased T2 signal and T1 signal involving the raj which also slightly extends into the brachium pontis region which may be from chronic infarct changes. Cervical spinal cord is normal cord caliber with no abnormal signal. There are degenerative spurs involving the cervical spine and facet arthropathy. C1-C2: There are degenerative spurs involving the atlantoodontoid interval anteriorly. There is no significant central canal narrowing. C2-C3: There is moderate left facet arthropathy and mild right facet arthropathy. There is no significant central canal or neural foramen narrowing. C3-C4: There is grade 1 anterolisthesis C3 on C4. There is a diffuse disk bulge with small right paracentral disk herniation. There is moderate left facet arthropathy/hypertrophy and mild right facet arthropathy. There is moderate central canal stenosis. There is mild to moderate left neural foramen narrowing and mild right neural foramen narrowing. C4-C5: There is diffuse disk bulge and moderate loss of disk space height. There is moderate left facet arthropathy and mild right facet arthropathy. There is severe right neural foramen narrowing and mild to moderate left neural foramen narrowing. There is mild central canal stenosis. C5-C6: There is diffuse disk bulge with severe loss of disk space height and superimposed posterior disk spurs and bilateral uncinate spurs. There is severe bilateral neural foramen narrowing and severe central canal stenosis. C6-C7: There is a small central posterior disk extrusion/herniation. There is minimal ligament flavum buckling. There is mild central canal stenosis. There is no significant neural foramen narrowing. C7-T1: There is moderate bilateral facet arthropathy. There is no significant central canal or neural foramen narrowing. IMPRESSION: 1: There is no acute cervical spine fracture. 2: There is multilevel cervical spine degenerative disk disease, as described above. Dictated by: Dictated on workstation # [id number]
== END ==
LOC: RAD 14:46
PROVIDERS: ATTEND Family Medicine
DX: M50.11 Cervical disc disorder with radiculopathy, high cervical region (principal); M50.121 Cervical disc disorder at C4-C5 level with radiculopathy; M50.122 Cervical disc disorder at C5-C6 level with radiculopathy; M50.123 Cervical disc disorder at C6-C7 level with radiculopathy
CPT/HCPCS: 72141